=== PATIENT | female | born 1930 | race Asian ===

== ENCOUNTER 2018-05-04 21:26 | Emergency (ER) | payer OTHER, MEDICAID ==
[~2018-05-04] VITALS: Ht 152.4 cm; Wt 51.3 kg
[2018-05-04 21:44] VITALS: BP_SYST 157
[2018-05-04 22:41] VITALS: BP_SYST 157
== END 2018-05-04 22:41 | disposition home or self-care (01) ==
LOC: SED 21:26
DX: S03.01XA Dislocation of jaw, right side, initial encounter (principal); K21.9 Gastro-esophageal reflux disease without esophagitis; R03.0 Elevated blood-pressure reading, without diagnosis of hypertension; Z90.89 Acquired absence of other organs; Z90.49 Acquired absence of other specified parts of digestive tract; X58.XXXA Exposure to other specified factors, initial encounter; Y93.89 Activity, other specified; Y92.89 Other specified places as the place of occurrence of the external cause; Y99.8 Other external cause status
CPT/HCPCS: 70110-TC; 99284

== ENCOUNTER 2018-05-09 07:40 | Emergency (ER) | payer OTHER, MEDICAID ==
[~2018-05-09] VITALS: Ht 149.9 cm; Wt 52.6 kg
[2018-05-09 07:47] VITALS: BP_SYST 165
[2018-05-09] MEDS ORDERED: LORazepam 2 MG/ML VIAL (FOR ER USE) IM ONE (08:15)
[2018-05-09 10:25] VITALS: BP_SYST 154
== END 2018-05-09 10:25 | disposition home or self-care (01) ==
LOC: SED 07:40
DX: S03.02XA Dislocation of jaw, left side, initial encounter (principal); Z90.89 Acquired absence of other organs; Z90.49 Acquired absence of other specified parts of digestive tract; X58.XXXA Exposure to other specified factors, initial encounter; Y93.89 Activity, other specified; Y92.89 Other specified places as the place of occurrence of the external cause; Y99.8 Other external cause status
CPT/HCPCS: 21480; 70110; 70486; 96372; 99285; J2060

== ENCOUNTER 2018-06-07 08:54 | Emergency (ER) | payer OTHER, MEDICAID ==
[~2018-06-07] VITALS: Ht 152.4 cm; Wt 53.1 kg
[2018-06-07 08:57] VITALS: BP_SYST 147
[2018-06-07 09:25] VITALS: BP_SYST 147
== END 2018-06-07 09:25 | disposition home or self-care (01) ==
LOC: SED 08:54
DX: S01.312D Laceration without foreign body of left ear, subsequent encounter (principal); K21.9 Gastro-esophageal reflux disease without esophagitis; X58.XXXD Exposure to other specified factors, subsequent encounter
CPT/HCPCS: 99281

== ENCOUNTER 2020-02-27 13:31 | Emergency (ER) | payer OTHER, MEDICAID ==
[~2020-02-27] VITALS: Ht 154.9 cm; Wt 49.9 kg
[2020-02-27 13:35] VITALS: BP_SYST 144
--- NOTE | 2020-02-27 13:35 | NUR ---
Patient to ER bed 7 to gown for evaluation. Side rails up.
--- NOTE | 2020-02-27 13:36 | NUR ---
Pt came to ER for R jaw pain x2 days no other complaints at this time. Pt resting in [facility] AO4 awaiting MD.
--- NOTE | 2020-02-27 13:50 | NUR ---
ER at bedside examining patient.
--- NOTE | 2020-02-27 14:11 | NUR ---
LABS OBTAINED, TOLERATED WELL. DAUGHTER AT BEDSIDE
[2020-02-27 14:19] LABS: BASOPHILS # (AUTO) 0.1 K/uL (0.0-0.2); BASOPHILS % (AUTO) 0.7 % (0.0-2.0); EOSINOPHILS # (AUTO) 0.1 K/uL (0.0-0.4); EOSINOPHILS % (AUTO) 1.2 % (0.0-4.0); HEMATOCRIT 36.8 % (36-48); HEMOGLOBIN 12.1 g/dL (12.0-16.0); LYMPHOCYTES # (AUTO) 2.5 K/uL (1.0-5.5); LYMPHOCYTES % (AUTO) 21.3 % (20.5-51.5); MEAN CORPUSCULAR HEMOGLOBIN 30 pg (27-31); MEAN CORPUSCULAR HGB CONC 33 % (32-36); MEAN CORPUSCULAR VOLUME 91 fL (79.0-98.0); MONOCYTES # (AUTO) 0.7 K/uL (0.0-1.0); MONOCYTES % (AUTO) 6.2 % (1.7-9.3); NEUTROPHILS # (AUTO) 8.2 K/uL (1.8-7.7); NEUTROPHILS % (AUTO) 70.6 % (40.0-70.0); PLATELET COUNT (AUTO) 231 K/uL (130-430); RED BLOOD CELL COUNT(AUTO) 4.05 MIL/uL (4.2-6.2); RED CELL DISTRIBUTION WIDTH 13.4 % (9.0-15.0); WHITE BLOOD COUNT (AUTO) 11.7 K/uL (4.8-10.8)
--- NOTE | 2020-02-27 14:24 | NUR ---
C/O RT LOWER JAW PAIN X 2 DAYS. DENIES FEVER/CHILLS. RESP UNLABORED, SKIN WARM AND DRY. DAUGHTER TO TRANSLATE. RESP UNLABORED, SKIN WARM AND DRY. NO DISTRESS
[2020-02-27 14:27] LABS: ANION GAP 11 (5-15); CALCIUM 8.5 mg/dL (8.4-11.0); CHLORIDE 107 mmol/L (98-107); CREATININE 0.78 mg/dL (0.55-1.30); GLUCOSE 90 mg/dL (70-99); POTASSIUM 3.7 mmol/L (3.5-5.1); SODIUM SERUM 141 mmol/L (136-145); UREA NITROGEN, BLOOD 19 mg/dL (8-21)
[2020-02-27 14:34] LABS: ALANINE AMINOTRANSFERASE 16 U/L (12-78); ALBUMIN 3.4 g/dL (3.4-4.8); ASPARTATE AMINOTRANSFERASE 17 U/L (10-37); TOTAL BILIRUBIN 0.5 mg/dL (0.0-1.0)
[2020-02-27 14:36] LABS: BILIRUBIN,URINE NEGATIVE (NEGATIVE); BLOOD, URINE 2+ (NEGATIVE); CLARITY/URINE CLEAR (CLEAR); COLOR,URINE YELLOW (YELLOW); GLUCOSE,URINE NEGATIVE (NEGATIVE); KETONES,URINE NEGATIVE (NEGATIVE); LEUKOCYTE ESTERASE ,URINE NEGATIVE (NEGATIVE); NITRITE, URINE NEGATIVE (NEGATIVE); PH,URINE 5.5 (5.0-8.0); PROTEIN URINE NEGATIVE (NEGATIVE); UROBILINOGEN,URINE 0.2 (0.2-1.0)
[2020-02-27 14:53] LABS: BACTERIA,URINE RARE /HPF (None Seen); MUCUS,URINE 1+ /LPF (None Seen); WBC,URINE 0-3 /HPF (0-3)
[2020-02-27 15:02] VITALS: BP_SYST 148
--- NOTE | 2020-02-27 15:03 | NUR ---
Patient given written and verbal discharge instructions and verbalizes understanding. ER MD discussed with patient the results and treatment provided. Patient in stable condition. ID arm band removed. Rx of NAPROXYN given. Patient educated on pain management and to follow up with PMD. Pain Scale 2/10 Opportunity for questions provided and answered. Medication side effect fact sheet provided.
== END 2020-02-27 16:08 | disposition home or self-care (01) ==
LOC: SED 13:31
DX: M26.69 Other specified disorders of temporomandibular joint (principal); I10 Essential (primary) hypertension; K21.9 Gastro-esophageal reflux disease without esophagitis
CPT/HCPCS: 36415; 70490; 80053; 81000-TC; 85025; 99284

== ENCOUNTER 2020-12-26 08:59 | Emergency (ER) | payer OTHER, MEDICAID ==
[~2020-12-26] VITALS: Ht 152.4 cm; Wt 56.7 kg
[2020-12-26 09:09] VITALS: BP_SYST 137
[2020-12-26] MEDS ORDERED: IBUP-1969 PO (10:57)
[2020-12-26] MEDS ORDERED: HYDROcodone/ACETAMIN 5-325 MG TAB (NORCO/ VICODIN) PO ONE (11:00)
[2020-12-26 11:12] VITALS: BP_SYST 137
== END 2020-12-26 11:09 | disposition home or self-care (01) ==
LOC: SED 08:59
DX: M17.11 Unilateral primary osteoarthritis, right knee (principal); E11.9 Type 2 diabetes mellitus without complications; I10 Essential (primary) hypertension; K21.9 Gastro-esophageal reflux disease without esophagitis; Z79.899 Other long term (current) drug therapy
CPT/HCPCS: 73564; 99283